=== PATIENT | male | born 1945 | race Caucasian/White ===

== ENCOUNTER → 2016-05-18 | Outpatient (CLI) | payer MEDICARE, OTHER ==
[~2016-05-18] MED LIST: ASPI-496 PO; CALC100O TP; CHOL100014 PO; CRAN300T PO; DAPA10TA PO; ESOM40CA PO; EXEN2VIA IM; EZET1TAB4 PO; FLAX1CAP PO; GLIP10TA13 PO; GLUC1TAB9 PO; HYDR25TA6 PO; LISI5TAB7 PO; MAGN300C PO; METF500T4 PO; MULT-658 PO
== END | disposition home or self-care (01) ==
LOC: CVU 11:23
PROVIDERS: ATTEND Family Medicine
DX: I08.0 Rheumatic disorders of both mitral and aortic valves (principal); I51.7 Cardiomegaly; E11.9 Type 2 diabetes mellitus without complications; J45.909 Unspecified asthma, uncomplicated; E78.5 Hyperlipidemia, unspecified; G47.30 Sleep apnea, unspecified; R60.0 Localized edema
CPT/HCPCS: 93306; 93922; 93970

== ENCOUNTER → 2016-06-08 | Outpatient (CLI) | payer MEDICARE, OTHER ==
[~2016-06-08] MED LIST changes: +OMNIPAQUE 350 MG/ML, 150 ML BOTTLE ONE
== END | disposition home or self-care (01) ==
LOC: CFH 10:31
PROVIDERS: ATTEND Internal Medicine Hematology & Oncology
DX: K44.9 Diaphragmatic hernia without obstruction or gangrene (principal); K43.9 Ventral hernia without obstruction or gangrene; R16.1 Splenomegaly, not elsewhere classified; N28.1 Cyst of kidney, acquired; K76.89 Other specified diseases of liver; N20.0 Calculus of kidney; R18.8 Other ascites; M51.37 Other intervertebral disc degeneration, lumbosacral region; D72.89 Other specified disorders of white blood cells
CPT/HCPCS: 71260; 74177; Q9967

== ENCOUNTER 2016-08-27 10:19 | Day surgery (SDC) | payer MEDICARE, OTHER ==
[~2016-08-27] VITALS: Ht 182.9 cm; Wt 161.8 kg
[~2016-08-27 10:19] MED LIST changes: -OMNIPAQUE 350 MG/ML, 150 ML BOTTLE ONE
[2016-08-27 11:16] VITALS: BP 132/76
[2016-08-27] MEDS ORDERED: SODIUM CHLORIDE 0.9% 1,000 ML IV SCH (11:18)
[2016-08-27] MEDS ORDERED: FENTANYL PF 100 MCG/2ML ONE (12:07)
[2016-08-27] MEDS ORDERED: FLUMAZENIL 0.1 MG/1 ML, 5ML ONE (12:07)
[2016-08-27] MEDS ORDERED: NALOXONE 1 MG/ML, 2ML ONE (12:07)
[2016-08-27] MEDS ORDERED: MIDAZOLAM 1 MG/ML, 5ML ONE (12:07)
== END 2016-08-27 14:40 | disposition home or self-care (01) ==
LOC: OUT 10:19
PROVIDERS: ATTEND Internal Medicine Hematology & Oncology
DX: D69.6 Thrombocytopenia, unspecified (principal); J45.909 Unspecified asthma, uncomplicated; I10 Essential (primary) hypertension; E11.9 Type 2 diabetes mellitus without complications; Z85.46 Personal history of malignant neoplasm of prostate; E78.5 Hyperlipidemia, unspecified; K21.9 Gastro-esophageal reflux disease without esophagitis; Z86.010 Personal history of colon polyps; Z87.442 Personal history of urinary calculi; Z98.890 Other specified postprocedural states
CPT/HCPCS: 36415; 49180; 77012; 85025; 85610; 88304; 88341; 88342; 99156; 99157; J2250; J3010; J7030; G0461; J2310

== ENCOUNTER → 2016-10-09 | Outpatient (CLI) | payer MEDICARE, OTHER ==
[2016-10-09 07:45] LABS: HEMATOCRIT 39.7 % (39.2-51.8); HEMOGLOBIN 13.3 g/dL (13.7-18.0); WHITE BLOOD COUNT 4.3 x10^3/uL (3.4-10)
[2016-10-09 07:46] LABS: DIFF TOTAL CELLS COUNTED 100 CELL DIFF
[2016-10-09 08:16] LABS: VERIFY COUNTS? YES
== END | disposition home or self-care (01) ==
LOC: RAD 07:25 → EDSTATUS 07:30
PROVIDERS: ATTEND Family Medicine
DX: D69.6 Thrombocytopenia, unspecified (principal); D72.89 Other specified disorders of white blood cells
CPT/HCPCS: 36415; 38221; 77012; 85025; 85097; 88237; 88264; 88280; 88305; 88311; 88313; G0364

== ENCOUNTER → 2016-10-11 | Outpatient (CLI) | payer MEDICARE, OTHER | END | disposition home or self-care (01) | LOC: CVU 07:07 | PROVIDERS: ATTEND Surgery Vascular Surgery | DX: I77.1 Stricture of artery (principal); I70.8 Atherosclerosis of other arteries; E11.9 Type 2 diabetes mellitus without complications; E78.5 Hyperlipidemia, unspecified; G47.33 Obstructive sleep apnea (adult) (pediatric); I10 Essential (primary) hypertension; Z98.890 Other specified postprocedural states | CPT/HCPCS: 93880 ==

== ENCOUNTER 2017-05-06 15:52 | Emergency (ER) | payer MEDICARE, OTHER ==
[~2017-05-06] VITALS: Ht 182.9 cm; Wt 162.0 kg
[~2017-05-06 15:52] MED LIST changes: +EZET1TAB30 PO; -EZET1TAB4 PO
[2017-05-06] MEDS ORDERED: ONDANSETRON ODT 4 MG ONE ×2 (16:09→18:02)
[2017-05-06] MEDS ORDERED: ONDANSETRON ODT 4 MG PO ONE (16:30)
[2017-05-06 16:35] LABS: ALBUMIN 3.6 g/dL (3.4-5.0); ANION GAP 7 mmol/L (5-15); CALCIUM 9.4 mg/dL (8.5-10.1); CHLORIDE 109 mmol/L (98-107); CREATININE 1.14 mg/dL (0.7-1.3)
[2017-05-06 16:55] LABS: BASOPHILS # (AUTO) 0.01 x10^3/uL (0-0.1); BASOPHILS % (AUTO) 0 % (0-1); EOSINOPHILS # (AUTO) 0.08 x10^3/uL (0-0.4); EOSINOPHILS % (AUTO) 2 % (1-7); LYMPHOCYTES # (AUTO) 0.44 x10^3/uL (1-3.4); LYMPHOCYTES % (AUTO) 9 % (22-44); MD SCAN; MEAN CORPUSCULAR HEMOGLOBIN 29.8 pg (27.5-34.5); MEAN CORPUSCULAR HGB CONC 33.6 g/dL (33.2-36.2); MEAN CORPUSCULAR VOLUME 88.7 fL (81-97); MEAN PLATELET VOLUME 9.1 fL (7.4-10.4); MONOCYTES # (AUTO) 0.35 x10^3/uL (0.2-0.8); MONOCYTES % (AUTO) 7 % (2-9); NEUTROPHILS # (AUTO) 4.22 x10^3/uL (1.8-6.8); NEUTROPHILS % (AUTO) 83 % (42-75); PLATELET COUNT 60 x10^3/uL (130-400); RED CELL DISTRIBUTION WIDTH 18.3 % (9.4-14.8)
[2017-05-06] MEDS ORDERED: SODIUM CHLORIDE FLUSH 10ML SYR IVF ONE (18:00)
[2017-05-06] MEDS ORDERED: MORPHINE SULFATE 4 MG/ML, 1ML ONE ×2 (18:02→19:06)
[2017-05-06] MEDS: MORPHINE SULFATE 4 MG/ML, 1ML IVPush PRN ×2 (18:09→19:09)
[2017-05-06 18:10] LABS: MICROSCOPIC AUTO
[2017-05-06 18:15] LABS: CULTURE INDICATED? NO
[2017-05-06 20:34] VITALS: BP 133/65
== END 2017-05-06 20:37 | disposition home or self-care (01) ==
LOC: ED 20:31
DX: N13.2 Hydronephrosis with renal and ureteral calculous obstruction (principal); E11.9 Type 2 diabetes mellitus without complications
CPT/HCPCS: 36415; 74176; 80048; 81001; 82040; 85025; 96374; 99285; Q0162

== ENCOUNTER → 2017-05-14 | Outpatient (CLI) | payer MEDICARE, OTHER ==
[~2017-05-14] MED LIST changes: +OMNIPAQUE 350 MG/ML, 75ML BOTTLE ONE
== END | disposition home or self-care (01) ==
LOC: CFH 09:12
PROVIDERS: ATTEND Internal Medicine Hematology & Oncology
DX: N20.1 Calculus of ureter (principal); K80.20 Calculus of gallbladder without cholecystitis without obstruction; R16.1 Splenomegaly, not elsewhere classified; K43.9 Ventral hernia without obstruction or gangrene; D72.89 Other specified disorders of white blood cells
CPT/HCPCS: 74177; Q9967

== ENCOUNTER → 2018-04-25 | Outpatient (CLI) | payer MEDICARE, OTHER ==
[~2018-04-25] MED LIST changes: +METF500T17 PO; -METF500T4 PO; -OMNIPAQUE 350 MG/ML, 75ML BOTTLE ONE
== END | disposition home or self-care (01) ==
LOC: CFH 07:21
PROVIDERS: ATTEND Internal Medicine
DX: K76.6 Portal hypertension (principal); K74.69 Other cirrhosis of liver; I85.10 Secondary esophageal varices without bleeding
CPT/HCPCS: 76700

== ENCOUNTER 2018-08-21 20:23 | Emergency (ER) | payer MEDICARE, OTHER ==
[~2018-08-21] VITALS: Ht 182.9 cm; Wt 157.8 kg
[2018-08-21] MEDS ORDERED: DIPH,PERTUSS(ACELL),TET VAC/PF 0.5 ML IM-VACC ONE ×2 (21:00→21:02)
[2018-08-21] MEDS ORDERED: LIDOCAINE 2%, 20ML SQ ONE (21:00)
[2018-08-21] MEDS ORDERED: LIDOCAINE-MPF 1%, 5ML ONE (21:01)
[2018-08-21] MEDS ORDERED: HYDROcodone/APAP 5/325 TABLET ONE (21:37)
--- NOTE | 2018-08-21 21:44 | NUR ---
PT MEDICATED FOR PAIN AND TETANUS SHOT GIVEN. PA AT BEDSIDE TO SUTURE
[2018-08-21 21:50] VITALS: BP 150/72
[2018-08-21] MEDS ORDERED: HYDROcodone/APAP 5/325 TABLET PO ONE (22:00)
[2018-08-21] MEDS ORDERED: BACITRACIN ZINC OINT 500U/GM, 0.9 GM ONE ×2 (22:03→22:15)
--- NOTE | 2018-08-21 22:20 | NUR ---
Patient given discharge instructions and they have confirmed that they understand the instructions. Patient ambulatory with steady gait.
== END 2018-08-21 22:25 | disposition home or self-care (01) ==
LOC: ED 21:47
DX: S01.01XA Laceration without foreign body of scalp, initial encounter (principal); S61.210A Laceration without foreign body of right index finger without damage to nail, initial encounter; S29.012A Strain of muscle and tendon of back wall of thorax, initial encounter; S00.83XA Contusion of other part of head, initial encounter; J45.909 Unspecified asthma, uncomplicated; E11.9 Type 2 diabetes mellitus without complications; W01.0XXA Fall on same level from slipping, tripping and stumbling without subsequent striking against object, initial encounter; Y93.89 Activity, other specified; Y92.89 Other specified places as the place of occurrence of the external cause; Y99.8 Other external cause status
CPT/HCPCS: 12001; 13131; 70450; 70486; 72072; 90471; 90715

== ENCOUNTER 2018-08-23 11:20 | Inpatient (IN) | payer MEDICARE, OTHER ==
[2018-08-23] VITALS (15 sets, daily range): BP systolic 92–141; BP diastolic 40–120
[~2018-08-23] VITALS: Ht 182.9 cm; Wt 164.1 kg
[~2018-08-23 11:20] MED LIST changes: +ETOMIDATE 20 MG/10 ML ONE; +PROPOFOL 10 MG/ML, 100ML IV ONE; +PROPOFOL 10 MG/ML, 20ML ONE; +ROCURONIUM 10MG/ML,5ML ONE; +SUCCINYLCHOLINE 20 MG/ML, 10ML ONE; +VECURONIUM 10 MG ONE
--- NOTE | 2018-08-23 11:22 | NUR ---
LATE ENTRY; PT BIB [facility] AFTER VOMITTING BRIGHT RED BLOOD AND HAVING DARK BURGUNDY STOOL. PT VERY PALE. PT PLACED IN TRAUMA 3. MD AT BEDSIDE. IV STARTED. PT WITH HX: FALLING 2 DAYS AGO AND WAS SEEN HERE. PT WITH HX OF ESOPHAGEAL BANDS 2 WEEKS AGO BY GI. PT A&OX4, VERY DROWSY. EKG DONE AND PRESENTED TO MD. ASSESSMENT COMPLETED. PT PLACED ON BP, CARDIAC AND CONT. PULSE OXIMETER.
[2018-08-23] MEDS ORDERED: PANTOPRAZOLE 80 MG in SODIUM CHLORIDE 0.9% 50 ML IVPB ONE (11:26)
[2018-08-23] MEDS ORDERED: PANTOPRAZOLE 80 MG in SODIUM CHLORIDE 0.9% 100 ML IV SCH (11:26)
[2018-08-23] MEDS ORDERED: SODIUM CHLORIDE 0.9% 1,000 ML IV ONE (11:26)
[2018-08-23] MEDS ORDERED: OCTREOTIDE 100MCG/ML, 1ML (0.1MG/ML) IV ONE (11:30)
[2018-08-23] MEDS ORDERED: PLEASE ENTER HEIGHT AND WEIGHT MC SCH (11:30)
[2018-08-23] MEDS ORDERED: SODIUM CHLORIDE FLUSH 10ML SYR IVF ONE (11:30)
[2018-08-23] MEDS ORDERED: ONDANSETRON 2MG/ML, 2ML ONE (11:40)
[2018-08-23] MEDS ORDERED: METOCLOPRAMIDE 5 MG/ML, 2ML ONE (11:40)
--- NOTE | 2018-08-23 11:40 | NUR ---
PT VOMITED 300CC OF FLANK BLOOD
--- NOTE | 2018-08-23 11:40 | NUR ---
LATE ENTRY: 1ST UNIT PRBCS [id number] STARTED AT 11:47 BY RAPID INFUSION AND ENDED AT 1155. 2ND UNIT PACKED RED BLOOD CELLS [id number] STARTED AT 11:55 AND ENDED AT 12:07 DOUBLE CHECKED WITH 2 RNS.
--- NOTE | 2018-08-23 11:47 | NUR ---
BLOOD INFUSING VIA LEVEL ONE. PT ALERT, IV INFUSING
[2018-08-23 11:53] LABS: BASOPHILS # (AUTO) 0.03 x10^3/uL (0-0.1); BASOPHILS % (AUTO) 0 % (0-1); EOSINOPHILS % (AUTO) 3 % (1-7); LYMPHOCYTES # (AUTO) 0.75 x10^3/uL (1-3.4); LYMPHOCYTES % (AUTO) 7 % (22-44); MD NO; MEAN CORPUSCULAR HGB CONC 33.1 g/dL (33.2-36.2); MEAN CORPUSCULAR VOLUME 96.8 fL (81-97); MEAN PLATELET VOLUME 9.8 fL (7.4-10.4); MONOCYTES # (AUTO) 0.59 x10^3/uL (0.2-0.8); MONOCYTES % (AUTO) 5 % (2-9); NEUTROPHILS # (AUTO) 9.54 x10^3/uL (1.8-6.8); NEUTROPHILS % (AUTO) 85 % (42-75); PLATELET COUNT 126 x10^3/uL (130-400)
--- NOTE | 2018-08-23 11:55 | NUR ---
1ST UNIT OF RBC INFUSED VIA LEVEL ONE, SECOND INFUSING
[2018-08-23] MEDS ORDERED: OCTREOTIDE 500 MCG in SODIUM CHLORIDE 0.9% 249 ML IV PRN (12:00)
[2018-08-23] MEDS ORDERED: ESOMEPRAZOLE SODIUM 80 MG in SODIUM CHLORIDE 0.9% 100 ML IV ONE (12:00)
[2018-08-23] MEDS ORDERED: METOCLOPRAMIDE 5 MG/ML, 2ML IVPush ONE (12:00)
[2018-08-23] MEDS ORDERED: CEFTRIAXONE PMX 1GM/50ML 50 ML IV ONE (12:00)
[2018-08-23 12:02] LABS: INTERNATIONAL NORMALIZED RATIO 1.34 (0.93-1.1); PROTHROMBIN TIME 13.9 Seconds (9.6-11.5)
[2018-08-23] MEDS ORDERED: KETAMINE 10 MG/ML, 20ML ONE (12:02)
--- NOTE | 2018-08-23 12:03 | NUR ---
VOMITED 300CC, OF BLOOD. PLATLETS STARTED+
[2018-08-23 12:07] LABS: ALBUMIN 2.4 g/dL (3.4-5.0); ANION GAP 8 mmol/L (5-15); CALCIUM 7.4 mg/dL (8.5-10.1); CHLORIDE 114 mmol/L (98-107)
--- NOTE | 2018-08-23 12:07 | NUR ---
SECOND RBC BAG INFUSED
--- NOTE | 2018-08-23 12:08 | NUR ---
DR. LOPES INSERTED RIGHT ABD CORDIS USING [employer]
[2018-08-23 12:10] LABS: ALANINE AMINOTRANSFERASE 33 U/L (12-78); ALKALINE PHOSPHATASE 73 U/L (45-117); BILIRUBIN,TOTAL 1.3 mg/dL (0.2-1.0); CREATININE 1.03 mg/dL (0.7-1.3); TOTAL PROTEIN 4.8 g/dL (6.4-8.2)
[2018-08-23] MEDS ORDERED: OCTREOTIDE 100MCG/ML, 1ML (0.1MG/ML) ONE (12:10)
[2018-08-23] MEDS ORDERED: CEFTRIAXONE PMX 1GM/50ML 50 ML ONE (12:19)
--- NOTE | 2018-08-23 12:23 | NUR ---
PLASMA, AND PLATLETS COMPLETED
[2018-08-23] MEDS ORDERED: ESOMEPRAZOLE SODIUM 80 MG in SODIUM CHLORIDE 0.9% 100 ML IVPush SCH (12:30)
--- NOTE | 2018-08-23 12:31 | NUR ---
BLOOD CULTURES DRAWN X 2 PRIOR TO ANTIBX ADMISTRATION
--- NOTE | 2018-08-23 12:34 | NUR ---
2ND PLASMA STARTED
[2018-08-23] MEDS ORDERED: FENTANYL PF 100 MCG/2ML ONE ×3 (12:49→14:56)
--- NOTE | 2018-08-23 12:57 | NUR ---
20 ETOMINATE IV BY MD, FOLLOWED 100MG SUCCINYLCHOLINE ADMISSED BY MD, INTUBATED WITH 8.0, 26CM AT LIP
[2018-08-23] MEDS: OCTREOTIDE 500 MCG in SODIUM CHLORIDE 0.9% 249 ML IV SCH ×2 (13:00→22:33)
[2018-08-23] MEDS ORDERED: POLYETHYLENE GLYCOL 17 GM PACKET PO PRN (13:00)
[2018-08-23] MEDS ORDERED: BISACODYL 10 MG SUPP PR PRN (13:00)
[2018-08-23] MEDS ORDERED: ONDANSETRON 2MG/ML, 2ML IVPush PRN (13:00)
[2018-08-23] MEDS ORDERED: MORPHINE SULFATE 4 MG/ML, 1ML IVPush PRN (13:00)
[2018-08-23] MEDS: ESOMEPRAZOLE SODIUM 80 MG in SODIUM CHLORIDE 0.9% 100 ML IV SCH ×2 (13:00→22:33)
[2018-08-23] MEDS ORDERED: LORazepam 2 MG/ML, 1ML IVPush PRN (13:00)
[2018-08-23] MEDS ORDERED: OXYcodone IR 5MG TABLET PO PRN (13:00)
--- NOTE | 2018-08-23 13:01 | NUR ---
50MG OF KETAMINE ADMISTERED
--- NOTE | 2018-08-23 13:15 | NUR ---
100 FENTANYL AND 10MG OF VECCURONIUM GIVEN.
--- NOTE | 2018-08-23 13:16 | NUR ---
ACKERMAN 18 CIT[place] INSERTED .
[2018-08-23 13:24] LABS: THYROID STIMULATING HORMONE 1.65 mIU/L (0.358-3.740)
--- NOTE | 2018-08-23 13:25 | NUR ---
RADIOLOGY AT BEDSIDE FOR CHEST X-RAY FOR TUBE PLACEMENT.
[2018-08-23] MEDS ORDERED: FENTANYL PF 100 MCG/2ML IVPush ONE ×2 (13:30→15:30)
[2018-08-23] MEDS ORDERED: SUCCINYLCHOLINE 20 MG/ML, 10ML IVPush ONE (13:30)
[2018-08-23] MEDS ORDERED: ETOMIDATE 20 MG/10 ML IVPush ONE (13:30)
[2018-08-23] MEDS ORDERED: KETAMINE 100 MG/ML, 5ML IV ONE (13:30)
--- NOTE | 2018-08-23 13:30 | NUR ---
100 PROPOFOL IV PUSH GIVEN BY . PT PREPPED FOR EGD WITH GI
[2018-08-23] MEDS ORDERED: PROPOFOL 10 MG/ML, 20ML ONE (13:59)
[2018-08-23] MEDS ORDERED: PROPOFOL 0 ML IV ONE (13:59)
[2018-08-23] MEDS ORDERED: TRANEXAMIC ACID 100 MG/ML, 10ML ONE (14:39)
--- NOTE | 2018-08-23 15:17 | NUR ---
GI EGD FINISHED. 2 MORE UNITS OF PACKED RED BLOOD CELLS INFUSING. PT WITH TOTAL OF 6 UNITS PACKED RED BLOOD CELLS INFUSING, 2 UNITS PLASMA, 1 UNIT PLATELET.
--- NOTE | 2018-08-23 15:19 | NUR ---
RIGHT HAND IV FELL OUT.
--- NOTE | 2018-08-23 15:20 | NUR ---
REPORT CALLED TO TREMAYNE DOTSON.
[2018-08-23] MEDS ORDERED: MAGNESIUM SULFATE 4 GM in SODIUM CHLORIDE 0.9% 100 ML IV ONE (15:30)
[2018-08-23] MEDS ORDERED: PROPOFOL 10 MG/ML, 20ML IVPush ONE (15:30)
[2018-08-23] MEDS ORDERED: PHYTONADIONE 10 MG in SODIUM CHLORIDE 0.9% 50 ML IV ONE (15:30)
[2018-08-23] MEDS ORDERED: TRANEXAMIC ACID 1,000 MG in SODIUM CHLORIDE 0.9% 100 ML IV ONE ×2 (15:30→17:00)
[2018-08-23] MEDS ORDERED: INSULIN LISPRO 100 UNITS/ML, PEN SQ-INSULIN SCH ×2 (16:00→21:00)
--- NOTE | 2018-08-23 16:09 | NUR ---
PT TRANSFERRED TO FLOOR REPORT GIVEN TO TREMAYNE DOTSON. PT TRANSFERRED WITH RN AND RESPIRATORY
[2018-08-23] MEDS ORDERED: FENTANYL PF 2,500 MCG in SODIUM CHLORIDE 0.9% 200 ML IV PRN (16:15)
[2018-08-23] MEDS: PROPOFOL 100 ML IV PRN ×3 (16:20→20:06)
[2018-08-23] MEDS ORDERED: DEXTROSE 50%, 50ML SYRINGE IVPush PRN (16:30)
[2018-08-23] MEDS ORDERED: GLUCAGON 1 MG IM PRN (16:30)
[2018-08-23] MEDS ORDERED: PHARMACY MAY ADJ FOR RENAL FX MC SCH (16:30)
[2018-08-23] MEDS ORDERED: LIDOCAINE-MPF 1%, 2ML ENDO PRN (16:30)
[2018-08-23] MEDS: ALBUTEROL/IPRATROPIUM 2.5MG/0.5MG, 3 ML INLINE SCH ×3 (16:30→22:00)
[2018-08-23] MEDS ORDERED: DEXTROSE 4 GM TAB.CHEW PO PRN (16:30)
[2018-08-23] MEDS ORDERED: NOREPINEPHRINE 1 MG/ML, 4ML ONE (16:30)
[2018-08-23] MEDS ORDERED: MIDAZOLAM 1 MG/ML, 2ML ONE (16:41)
[2018-08-23] MEDS ORDERED: VECURONIUM 10 MG ONE (16:48)
[2018-08-23] MEDS ORDERED: PROPOFOL 100 ML IV PRN (17:00)
[2018-08-23] MEDS ORDERED: NOREPINEPHRINE 4 MG in SODIUM CHLORIDE 0.9% 246 ML IV PRN (17:00)
[2018-08-23] MEDS ORDERED: NOVOSEVEN RT (FACTOR VIIA) RECOMB 1,000 MCG IVPush ONE (17:00)
[2018-08-23] MEDS: VECURONIUM 50 MG in SODIUM CHLORIDE 0.9% 250 ML IV PRN ×2 (17:03→22:31)
[2018-08-23] MEDS: FENTANYL PF 2,500 MCG in SODIUM CHLORIDE 0.9% 200 ML IV PRN (17:05)
[2018-08-23 17:10] LABS: INTERNATIONAL NORMALIZED RATIO 0.97 (0.93-1.1); PROTHROMBIN TIME 10.2 Seconds (9.6-11.5)
[2018-08-23 17:12] LABS: ANION GAP 8 mmol/L (5-15); CALCIUM 6.7 mg/dL (8.5-10.1); CHLORIDE 115 mmol/L (98-107); CREATININE 1.12 mg/dL (0.7-1.3); TRIGLYCERIDES 148 mg/dL (50-200)
[2018-08-23 17:17] LABS: MEAN CORPUSCULAR HEMOGLOBIN 31.2 pg (27.5-34.5); MEAN CORPUSCULAR HGB CONC 32.8 g/dL (33.2-36.2); MEAN CORPUSCULAR VOLUME 95.2 fL (81-97); PLATELET COUNT 175 x10^3/uL (130-400); RED BLOOD COUNT 3.49 x10^6/uL (4.38-5.82); RED CELL DISTRIBUTION WIDTH 16.7 % (9.4-14.8)
[2018-08-23 17:22] LABS: BASOPHILS # (AUTO) 0.02 x10^3/uL (0-0.1); BASOPHILS % (AUTO) 0 % (0-1); EOSINOPHILS % (AUTO) 1 % (1-7); LYMPHOCYTES # (AUTO) 0.87 x10^3/uL (1-3.4); LYMPHOCYTES % (AUTO) 4 % (22-44); MD SCAN; MONOCYTES # (AUTO) 1.31 x10^3/uL (0.2-0.8); MONOCYTES % (AUTO) 6 % (2-9); NEUTROPHILS # (AUTO) 18.39 x10^3/uL (1.8-6.8); NEUTROPHILS % (AUTO) 89 % (42-75)
[2018-08-23] MEDS ORDERED: FUROSEMIDE 20 MG/2 ML IV STA (17:59)
[2018-08-23] MEDS ORDERED: VASOPRESSIN 100 UNIT in SODIUM CHLORIDE 0.9% 495 ML IV PRN (18:00)
[2018-08-23] MEDS ORDERED: MIDAZOLAM 1 MG/ML, 2ML IVPush ONE (18:00)
[2018-08-23] MEDS ORDERED: CALCIUM CHLORIDE 13.6 MEQ in SODIUM CHLORIDE 0.9% 100 ML IV ONE (18:00)
[2018-08-23] MEDS ORDERED: VECURONIUM 10 MG IVPush ONE (18:00)
[2018-08-23] MEDS ORDERED: CODE BLUE RESPONSE XX ONE (18:00)
[2018-08-23] MEDS ORDERED: CALCIUM GLUCONATE 13.8 MEQ in SODIUM CHLORIDE 0.9% 100 ML IV ONE (18:00)
[2018-08-23 19:00] LABS: MEAN CORPUSCULAR HEMOGLOBIN 31.6 pg (27.5-34.5); MEAN CORPUSCULAR HGB CONC 33.7 g/dL (33.2-36.2); MEAN CORPUSCULAR VOLUME 93.7 fL (81-97); MEAN PLATELET VOLUME 8.7 fL (7.4-10.4); PLATELET COUNT 172 x10^3/uL (130-400); RED BLOOD COUNT 4.14 x10^6/uL (4.38-5.82); RED CELL DISTRIBUTION WIDTH 16.2 % (9.4-14.8)
[2018-08-23 19:17] LABS: D-DIMER (DIC) 4.31 ug/mlFEU (0.00-0.52); PROTIME 10.6 Seconds (9.6-11.5)
[2018-08-23 19:20] LABS: MD YES
[2018-08-23 19:22] LABS: BAND#(MANUAL) 1.48 x10^3/uL; BANDS%(MANUAL) 6 % (0-7); LYMPH#(MANUAL) 0.49 x10^3/uL (1-3.4); LYMPHS% (MANUAL) 2 % (22-44); MONOS#(MANUAL) 1.97 x10^3/uL (0.3-2.7); MONOS% (MANUAL) 8 % (2-9); SEG#(MANUAL) 20.66 x10^3/uL (1.8-6.8); SEGS% (MANUAL) 84 % (42-75)
[2018-08-23 19:23] LABS: ANISOCYTOSIS 1+
[2018-08-23 19:24] LABS: POLYCHROMASIA 1+
[2018-08-23 19:25] LABS: <PLATELET ESTIMATE> ADEQUATE; <PLT MORPHOLOGY> NORMAL PLT MORPH; ECHINOCYTES 1+
[2018-08-23] MEDS ORDERED: LACTULOSE 10 GM/15 ML UDC PO SCH (21:00)
[2018-08-23] MEDS: SODIUM CHLORIDE FLUSH 10ML SYR IVF SCH (21:15)
[2018-08-23] MEDS: INSULIN LISPRO 100 UNITS/ML, PEN SQ-INSULIN SCH (21:20)
[2018-08-23] MEDS ORDERED: NOREPINEPHRINE 8 MG in SODIUM CHLORIDE 0.9% 242 ML IV PRN (22:00)
[2018-08-23 22:36] LABS: MEAN CORPUSCULAR HEMOGLOBIN 31.1 pg (27.5-34.5); MEAN CORPUSCULAR HGB CONC 33.1 g/dL (33.2-36.2); MEAN CORPUSCULAR VOLUME 93.9 fL (81-97); MEAN PLATELET VOLUME 8.6 fL (7.4-10.4); PLATELET COUNT 159 x10^3/uL (130-400); RED BLOOD COUNT 4.18 x10^6/uL (4.38-5.82); RED CELL DISTRIBUTION WIDTH 16.4 % (9.4-14.8)
[2018-08-23 22:51] LABS: MD YES; TROPONIN I 0.263 ng/mL (0.000-0.045)
[2018-08-23 22:52] LABS: BAND#(MANUAL) 1.46 x10^3/uL; BANDS%(MANUAL) 6 % (0-7); LYMPH#(MANUAL) 0.49 x10^3/uL (1-3.4); LYMPHS% (MANUAL) 2 % (22-44); MONOS% (MANUAL) 9 % (2-9); SEG#(MANUAL) 20.25 x10^3/uL (1.8-6.8); SEGS% (MANUAL) 83 % (42-75)
[2018-08-23 22:53] LABS: ANISOCYTOSIS 1+; ECHINOCYTES 1+; TEAR DROPS 1+
[2018-08-23 22:54] LABS: OVALOCYTES 1+; POLYCHROMASIA 1+
[2018-08-23 22:55] LABS: <PLATELET ESTIMATE> ADEQUATE; <PLT MORPHOLOGY> NORMAL PLT MORPH
[2018-08-24] MEDS: PROPOFOL 100 ML IV PRN ×6 (00:04→20:03)
[2018-08-24 02:13] LABS: MEAN CORPUSCULAR HEMOGLOBIN 31.5 pg (27.5-34.5); MEAN CORPUSCULAR VOLUME 92.8 fL (81-97); MEAN PLATELET VOLUME 8.5 fL (7.4-10.4); PLATELET COUNT 146 x10^3/uL (130-400); RED CELL DISTRIBUTION WIDTH 16.2 % (9.4-14.8)
[2018-08-24 02:19] LABS: MD YES
[2018-08-24] MEDS: ALBUTEROL/IPRATROPIUM 2.5MG/0.5MG, 3 ML INLINE SCH ×6 (02:22→22:15)
[2018-08-24 02:23] LABS: INTERNATIONAL NORMALIZED RATIO 1.15 (0.93-1.1)
[2018-08-24 02:25] LABS: ANISOCYTOSIS 1+; BAND#(MANUAL) 0.61 x10^3/uL; BANDS%(MANUAL) 3 % (0-7); LYMPH#(MANUAL) 1.01 x10^3/uL (1-3.4); LYMPHS% (MANUAL) 5 % (22-44); MONOS#(MANUAL) 1.01 x10^3/uL (0.3-2.7); MONOS% (MANUAL) 5 % (2-9); POLYCHROMASIA 1+; SEG#(MANUAL) 17.57 x10^3/uL (1.8-6.8); SEGS% (MANUAL) 87 % (42-75)
[2018-08-24 02:26] LABS: <PLATELET ESTIMATE> DECREASED; <PLT MORPHOLOGY> NORMAL PLT MORPH; ALANINE AMINOTRANSFERASE 32 U/L (12-78); ALBUMIN 2.5 g/dL (3.4-5.0); ANION GAP 6 mmol/L (5-15); CALCIUM 7.3 mg/dL (8.5-10.1); CHLORIDE 115 mmol/L (98-107); CREATININE 1.05 mg/dL (0.7-1.3); OVALOCYTES 1+; TEAR DROPS 1+
[2018-08-24 02:28] LABS: ALKALINE PHOSPHATASE 75 U/L (45-117); BILIRUBIN,TOTAL 1.4 mg/dL (0.2-1.0)
[2018-08-24 02:33] LABS: TROPONIN I 0.202 ng/mL (0.000-0.045)
[2018-08-24] MEDS: INSULIN LISPRO 100 UNITS/ML, PEN SQ-INSULIN SCH ×4 (02:33→22:50)
[2018-08-24] MEDS: MIDAZOLAM HCL 50 MG in SODIUM CHLORIDE 0.9% 240 ML IV PRN ×2 (03:28→12:12)
[2018-08-24] MEDS ORDERED: MIDAZOLAM 1 MG/ML, 2ML IVPush PRN (03:30)
[2018-08-24] MEDS: VECURONIUM 50 MG in SODIUM CHLORIDE 0.9% 250 ML IV PRN ×4 (04:25→23:32)
[2018-08-24 04:56] VITALS: BP 112/53
[2018-08-24] MEDS: OCTREOTIDE 500 MCG in SODIUM CHLORIDE 0.9% 249 ML IV SCH ×2 (07:36→18:20)
[2018-08-24] MEDS: ESOMEPRAZOLE SODIUM 80 MG in SODIUM CHLORIDE 0.9% 100 ML IV SCH ×2 (07:36→18:20)
[2018-08-24 07:37] LABS: MEAN CORPUSCULAR HEMOGLOBIN 30.3 pg (27.5-34.5); MEAN CORPUSCULAR VOLUME 91.9 fL (81-97); MEAN PLATELET VOLUME 8.4 fL (7.4-10.4); PLATELET COUNT 128 x10^3/uL (130-400); RED BLOOD COUNT 3.77 x10^6/uL (4.38-5.82); RED CELL DISTRIBUTION WIDTH 16.7 % (9.4-14.8)
[2018-08-24] MEDS: SODIUM CHLORIDE FLUSH 10ML SYR IVF SCH ×2 (07:37→20:09)
[2018-08-24] MEDS: PHYTONADIONE 10 MG/ML, 1ML SQ SCH (07:45)
[2018-08-24 09:01] LABS: BASOPHILS # (AUTO) 0.04 x10^3/uL (0-0.1); BASOPHILS % (AUTO) 0 % (0-1); EOSINOPHILS % (AUTO) 1 % (1-7); LYMPHOCYTES # (AUTO) 1.34 x10^3/uL (1-3.4); LYMPHOCYTES % (AUTO) 9 % (22-44); MD NO; MONOCYTES # (AUTO) 1.36 x10^3/uL (0.2-0.8); MONOCYTES % (AUTO) 9 % (2-9); NEUTROPHILS # (AUTO) 12.08 x10^3/uL (1.8-6.8); NEUTROPHILS % (AUTO) 81 % (42-75)
[2018-08-24 10:32] LABS: MEAN CORPUSCULAR HEMOGLOBIN 30.2 pg (27.5-34.5); MEAN CORPUSCULAR HGB CONC 33.2 g/dL (33.2-36.2); MEAN CORPUSCULAR VOLUME 90.9 fL (81-97); MEAN PLATELET VOLUME 8.1 fL (7.4-10.4); PLATELET COUNT 85 x10^3/uL (130-400); RED BLOOD COUNT 3.76 x10^6/uL (4.38-5.82); RED CELL DISTRIBUTION WIDTH 16.9 % (9.4-14.8)
[2018-08-24 10:57] LABS: BASOPHILS # (AUTO) 0.02 x10^3/uL (0-0.1); BASOPHILS % (AUTO) 0 % (0-1); EOSINOPHILS # (AUTO) 0.14 x10^3/uL (0-0.4); EOSINOPHILS % (AUTO) 1 % (1-7); LYMPHOCYTES # (AUTO) 1.01 x10^3/uL (1-3.4); LYMPHOCYTES % (AUTO) 9 % (22-44); MD SCAN; MONOCYTES # (AUTO) 1.08 x10^3/uL (0.2-0.8); MONOCYTES % (AUTO) 9 % (2-9); NEUTROPHILS # (AUTO) 9.42 x10^3/uL (1.8-6.8); NEUTROPHILS % (AUTO) 81 % (42-75)
[2018-08-24] MEDS: CEFTRIAXONE PMX 1GM/50ML 50 ML IV SCH (11:01)
[2018-08-24] MEDS: FENTANYL PF 2,500 MCG in SODIUM CHLORIDE 0.9% 200 ML IV PRN (14:31)
[2018-08-24 14:39] LABS: MEAN CORPUSCULAR HEMOGLOBIN 30.2 pg (27.5-34.5); MEAN CORPUSCULAR HGB CONC 33.3 g/dL (33.2-36.2); MEAN CORPUSCULAR VOLUME 90.6 fL (81-97); MEAN PLATELET VOLUME 7.9 fL (7.4-10.4); PLATELET COUNT 59 x10^3/uL (130-400); RED BLOOD COUNT 3.47 x10^6/uL (4.38-5.82); RED CELL DISTRIBUTION WIDTH 16.5 % (9.4-14.8)
[2018-08-24 14:45] LABS: BASOPHILS # (AUTO) 0.02 x10^3/uL (0-0.1); BASOPHILS % (AUTO) 0 % (0-1); EOSINOPHILS # (AUTO) 0.05 x10^3/uL (0-0.4); EOSINOPHILS % (AUTO) 1 % (1-7); LYMPHOCYTES # (AUTO) 0.53 x10^3/uL (1-3.4); LYMPHOCYTES % (AUTO) 6 % (22-44); MD SCAN; MONOCYTES # (AUTO) 0.58 x10^3/uL (0.2-0.8); MONOCYTES % (AUTO) 7 % (2-9); NEUTROPHILS # (AUTO) 7.35 x10^3/uL (1.8-6.8); NEUTROPHILS % (AUTO) 86 % (42-75)
[2018-08-24] MEDS: METRONIDAZOLE PMX 500MG/100ML 100 ML IV SCH ×2 (15:18→22:47)
[2018-08-24 19:16] LABS: MEAN CORPUSCULAR HEMOGLOBIN 31.1 pg (27.5-34.5); MEAN CORPUSCULAR HGB CONC 33.8 g/dL (33.2-36.2); MEAN PLATELET VOLUME 8.4 fL (7.4-10.4); PLATELET COUNT 57 x10^3/uL (130-400); RED BLOOD COUNT 3.14 x10^6/uL (4.38-5.82); RED CELL DISTRIBUTION WIDTH 16.8 % (9.4-14.8)
[2018-08-24 19:18] LABS: BASOPHILS # (AUTO) 0.01 x10^3/uL (0-0.1); BASOPHILS % (AUTO) 0 % (0-1); EOSINOPHILS # (AUTO) 0.05 x10^3/uL (0-0.4); EOSINOPHILS % (AUTO) 1 % (1-7); LYMPHOCYTES # (AUTO) 0.68 x10^3/uL (1-3.4); LYMPHOCYTES % (AUTO) 10 % (22-44); MD SCAN; MONOCYTES # (AUTO) 0.62 x10^3/uL (0.2-0.8); MONOCYTES % (AUTO) 9 % (2-9); NEUTROPHILS # (AUTO) 5.41 x10^3/uL (1.8-6.8); NEUTROPHILS % (AUTO) 80 % (42-75)
[2018-08-24 22:14] LABS: MEAN CORPUSCULAR HEMOGLOBIN 31.3 pg (27.5-34.5); MEAN CORPUSCULAR HGB CONC 33.8 g/dL (33.2-36.2); MEAN CORPUSCULAR VOLUME 92.5 fL (81-97); MEAN PLATELET VOLUME 8.1 fL (7.4-10.4); PLATELET COUNT 54 x10^3/uL (130-400); RED BLOOD COUNT 3.19 x10^6/uL (4.38-5.82); RED CELL DISTRIBUTION WIDTH 17.1 % (9.4-14.8)
[2018-08-24 22:33] LABS: BASOPHILS # (AUTO) 0.07 x10^3/uL (0-0.1); BASOPHILS % (AUTO) 1 % (0-1); EOSINOPHILS # (AUTO) 0.08 x10^3/uL (0-0.4); EOSINOPHILS % (AUTO) 1 % (1-7); LYMPHOCYTES # (AUTO) 0.68 x10^3/uL (1-3.4); LYMPHOCYTES % (AUTO) 9 % (22-44); MD SCAN; MONOCYTES # (AUTO) 0.66 x10^3/uL (0.2-0.8); MONOCYTES % (AUTO) 9 % (2-9); NEUTROPHILS # (AUTO) 6.05 x10^3/uL (1.8-6.8); NEUTROPHILS % (AUTO) 80 % (42-75)
[2018-08-25] VITALS (7 sets, daily range): BP systolic 115–145; BP diastolic 63–93
[2018-08-25] MEDS: ALBUTEROL/IPRATROPIUM 2.5MG/0.5MG, 3 ML INLINE SCH ×7 (02:10→22:30)
[2018-08-25] MEDS: MIDAZOLAM HCL 50 MG in SODIUM CHLORIDE 0.9% 240 ML IV PRN ×3 (03:53→23:49)
[2018-08-25] MEDS: INSULIN LISPRO 100 UNITS/ML, PEN SQ-INSULIN SCH ×4 (04:10→22:21)
[2018-08-25 04:28] LABS: MEAN CORPUSCULAR VOLUME 93.8 fL (81-97); MEAN PLATELET VOLUME 8.6 fL (7.4-10.4); PLATELET COUNT 54 x10^3/uL (130-400); RED BLOOD COUNT 3.05 x10^6/uL (4.38-5.82); RED CELL DISTRIBUTION WIDTH 17.4 % (9.4-14.8)
[2018-08-25 04:49] LABS: D-DIMER (DIC) 5.57 ug/mlFEU (0.00-0.52); PROTIME 13.4 Seconds (9.6-11.5)
[2018-08-25] MEDS: OCTREOTIDE 500 MCG in SODIUM CHLORIDE 0.9% 249 ML IV SCH ×2 (04:52→14:46)
[2018-08-25] MEDS: ESOMEPRAZOLE SODIUM 80 MG in SODIUM CHLORIDE 0.9% 100 ML IV SCH ×2 (04:52→15:49)
[2018-08-25 05:40] LABS: BASOPHILS # (AUTO) 0.03 x10^3/uL (0-0.1); BASOPHILS % (AUTO) 0 % (0-1); EOSINOPHILS # (AUTO) 0.09 x10^3/uL (0-0.4); EOSINOPHILS % (AUTO) 1 % (1-7); LYMPHOCYTES # (AUTO) 0.69 x10^3/uL (1-3.4); LYMPHOCYTES % (AUTO) 10 % (22-44); MD SCAN; MONOCYTES # (AUTO) 0.73 x10^3/uL (0.2-0.8); MONOCYTES % (AUTO) 10 % (2-9); NEUTROPHILS # (AUTO) 5.65 x10^3/uL (1.8-6.8); NEUTROPHILS % (AUTO) 79 % (42-75)
[2018-08-25] MEDS: VECURONIUM 50 MG in SODIUM CHLORIDE 0.9% 250 ML IV PRN (05:41)
[2018-08-25] MEDS: METRONIDAZOLE PMX 500MG/100ML 100 ML IV SCH ×3 (06:31→22:13)
[2018-08-25 09:59] LABS: ANION GAP 6 mmol/L (5-15); CALCIUM 7.4 mg/dL (8.5-10.1); CHLORIDE 115 mmol/L (98-107); CREATININE 0.94 mg/dL (0.7-1.3)
[2018-08-25 10:03] LABS: MEAN CORPUSCULAR HEMOGLOBIN 31.9 pg (27.5-34.5); MEAN CORPUSCULAR HGB CONC 34.1 g/dL (33.2-36.2); MEAN CORPUSCULAR VOLUME 93.6 fL (81-97); MEAN PLATELET VOLUME 8.4 fL (7.4-10.4); RED BLOOD COUNT 2.92 x10^6/uL (4.38-5.82); RED CELL DISTRIBUTION WIDTH 17.4 % (9.4-14.8)
[2018-08-25 10:05] LABS: PLATELET COUNT 47 x10^3/uL (130-400)
[2018-08-25 10:15] LABS: BASOPHILS # (AUTO) 0.01 x10^3/uL (0-0.1); BASOPHILS % (AUTO) 0 % (0-1); EOSINOPHILS # (AUTO) 0.07 x10^3/uL (0-0.4); EOSINOPHILS % (AUTO) 1 % (1-7); LYMPHOCYTES # (AUTO) 0.49 x10^3/uL (1-3.4); LYMPHOCYTES % (AUTO) 9 % (22-44); MD SCAN; MONOCYTES # (AUTO) 0.48 x10^3/uL (0.2-0.8); MONOCYTES % (AUTO) 9 % (2-9); NEUTROPHILS # (AUTO) 4.49 x10^3/uL (1.8-6.8); NEUTROPHILS % (AUTO) 81 % (42-75)
[2018-08-25] MEDS: PHYTONADIONE 10 MG/ML, 1ML SQ SCH (10:34)
[2018-08-25] MEDS: SODIUM CHLORIDE FLUSH 10ML SYR IVF SCH ×2 (10:38→21:47)
[2018-08-25] MEDS: FENTANYL PF 2,500 MCG in SODIUM CHLORIDE 0.9% 200 ML IV PRN (12:07)
[2018-08-25] MEDS: CEFTRIAXONE PMX 1GM/50ML 50 ML IV SCH (12:09)
[2018-08-25 13:19] LABS: MEAN CORPUSCULAR HEMOGLOBIN 31.8 pg (27.5-34.5); MEAN CORPUSCULAR HGB CONC 34.3 g/dL (33.2-36.2); MEAN CORPUSCULAR VOLUME 92.7 fL (81-97); RED BLOOD COUNT 2.88 x10^6/uL (4.38-5.82); RED CELL DISTRIBUTION WIDTH 16.7 % (9.4-14.8)
[2018-08-25 13:23] LABS: MEAN PLATELET VOLUME 7.8 fL (7.4-10.4); PLATELET COUNT 57 x10^3/uL (130-400)
[2018-08-25 13:26] LABS: BASOPHILS # (AUTO) 0.01 x10^3/uL (0-0.1); BASOPHILS % (AUTO) 0 % (0-1); EOSINOPHILS # (AUTO) 0.07 x10^3/uL (0-0.4); EOSINOPHILS % (AUTO) 1 % (1-7); LYMPHOCYTES # (AUTO) 0.43 x10^3/uL (1-3.4); LYMPHOCYTES % (AUTO) 8 % (22-44); MD SCAN; MONOCYTES # (AUTO) 0.46 x10^3/uL (0.2-0.8); MONOCYTES % (AUTO) 8 % (2-9); NEUTROPHILS # (AUTO) 4.54 x10^3/uL (1.8-6.8); NEUTROPHILS % (AUTO) 82 % (42-75)
[2018-08-25] MEDS ORDERED: LIDOCAINE-MPF 1%, 5ML ONE (15:52)
[2018-08-25] MEDS: ALBUMIN HUMAN 25% 100 ML IV SCH ×2 (17:50→22:55)
[2018-08-25 18:47] LABS: BASOPHILS # (AUTO) 0.02 x10^3/uL (0-0.1); BASOPHILS % (AUTO) 0 % (0-1); EOSINOPHILS # (AUTO) 0.08 x10^3/uL (0-0.4); EOSINOPHILS % (AUTO) 2 % (1-7); LYMPHOCYTES % (AUTO) 9 % (22-44); MD SCAN; MEAN CORPUSCULAR HEMOGLOBIN 31.4 pg (27.5-34.5); MEAN CORPUSCULAR HGB CONC 33.5 g/dL (33.2-36.2); MEAN CORPUSCULAR VOLUME 93.8 fL (81-97); MEAN PLATELET VOLUME 8.4 fL (7.4-10.4); MONOCYTES % (AUTO) 9 % (2-9); NEUTROPHILS # (AUTO) 3.49 x10^3/uL (1.8-6.8); NEUTROPHILS % (AUTO) 80 % (42-75); PLATELET COUNT 57 x10^3/uL (130-400); RED BLOOD COUNT 2.53 x10^6/uL (4.38-5.82); RED CELL DISTRIBUTION WIDTH 17.2 % (9.4-14.8)
[2018-08-25 22:26] LABS: MEAN CORPUSCULAR HEMOGLOBIN 31.6 pg (27.5-34.5); MEAN CORPUSCULAR HGB CONC 33.8 g/dL (33.2-36.2); MEAN CORPUSCULAR VOLUME 93.4 fL (81-97); MEAN PLATELET VOLUME 8.2 fL (7.4-10.4); PLATELET COUNT 52 x10^3/uL (130-400); RED BLOOD COUNT 2.54 x10^6/uL (4.38-5.82)
[2018-08-25 22:46] LABS: BASOPHILS # (AUTO) 0.02 x10^3/uL (0-0.1); BASOPHILS % (AUTO) 1 % (0-1); EOSINOPHILS # (AUTO) 0.09 x10^3/uL (0-0.4); EOSINOPHILS % (AUTO) 2 % (1-7); LYMPHOCYTES # (AUTO) 0.37 x10^3/uL (1-3.4); LYMPHOCYTES % (AUTO) 10 % (22-44); MD SCAN; MONOCYTES # (AUTO) 0.33 x10^3/uL (0.2-0.8); MONOCYTES % (AUTO) 8 % (2-9); NEUTROPHILS # (AUTO) 3.05 x10^3/uL (1.8-6.8); NEUTROPHILS % (AUTO) 79 % (42-75)
[2018-08-26] MEDS: OCTREOTIDE 500 MCG in SODIUM CHLORIDE 0.9% 249 ML IV SCH ×2 (00:32→11:47)
[2018-08-26 01:18] LABS: MEAN CORPUSCULAR HEMOGLOBIN 30.8 pg (27.5-34.5); MEAN CORPUSCULAR HGB CONC 33.4 g/dL (33.2-36.2); MEAN CORPUSCULAR VOLUME 92.2 fL (81-97); MEAN PLATELET VOLUME 8.2 fL (7.4-10.4); PLATELET COUNT 52 x10^3/uL (130-400); RED BLOOD COUNT 2.47 x10^6/uL (4.38-5.82); RED CELL DISTRIBUTION WIDTH 16.9 % (9.4-14.8)
[2018-08-26] MEDS: ESOMEPRAZOLE SODIUM 80 MG in SODIUM CHLORIDE 0.9% 100 ML IV SCH (01:19)
[2018-08-26 01:20] LABS: MD YES
[2018-08-26 01:23] LABS: EOS#(MANUAL) 0.03 x10^3/uL (0.0-0.4); EOS% (MANUAL) 1 % (1-7); LYMPH#(MANUAL) 0.31 x10^3/uL (1-3.4); LYMPHS% (MANUAL) 10 % (22-44); MONOS#(MANUAL) 0.22 x10^3/uL (0.3-2.7); MONOS% (MANUAL) 7 % (2-9); SEG#(MANUAL) 2.54 x10^3/uL (1.8-6.8); SEGS% (MANUAL) 82 % (42-75)
[2018-08-26 01:24] LABS: ANISOCYTOSIS 1+; POLYCHROMASIA 1+
[2018-08-26 01:25] LABS: <PLATELET ESTIMATE> DECREASED; <PLT MORPHOLOGY> NORMAL PLT MORPH
[2018-08-26] MEDS: ALBUTEROL/IPRATROPIUM 2.5MG/0.5MG, 3 ML INLINE SCH ×3 (02:15→10:10)
[2018-08-26 04:17] VITALS: BP 124/68
[2018-08-26] MEDS: INSULIN LISPRO 100 UNITS/ML, PEN SQ-INSULIN SCH ×2 (04:31→10:20)
[2018-08-26 04:44] LABS: MEAN CORPUSCULAR HEMOGLOBIN 30.8 pg (27.5-34.5); MEAN CORPUSCULAR HGB CONC 33.2 g/dL (33.2-36.2); MEAN CORPUSCULAR VOLUME 92.8 fL (81-97); MEAN PLATELET VOLUME 8.4 fL (7.4-10.4); PLATELET COUNT 58 x10^3/uL (130-400); RED BLOOD COUNT 2.27 x10^6/uL (4.38-5.82); RED CELL DISTRIBUTION WIDTH 17.4 % (9.4-14.8)
[2018-08-26 04:51] LABS: ANION GAP 2 mmol/L (5-15); CALCIUM 7.6 mg/dL (8.5-10.1); CHLORIDE 117 mmol/L (98-107)
[2018-08-26 04:52] LABS: CREATININE 0.85 mg/dL (0.7-1.3); TRIGLYCERIDES 139 mg/dL (50-200)
[2018-08-26 05:47] LABS: BASOPHILS % (AUTO) 0 % (0-1); EOSINOPHILS # (AUTO) 0.08 x10^3/uL (0-0.4); EOSINOPHILS % (AUTO) 3 % (1-7); LYMPHOCYTES % (AUTO) 10 % (22-44); MD SCAN; MONOCYTES # (AUTO) 0.28 x10^3/uL (0.2-0.8); MONOCYTES % (AUTO) 9 % (2-9); NEUTROPHILS # (AUTO) 2.47 x10^3/uL (1.8-6.8); NEUTROPHILS % (AUTO) 79 % (42-75)
[2018-08-26] MEDS: METRONIDAZOLE PMX 500MG/100ML 100 ML IV SCH ×2 (06:03→14:48)
[2018-08-26] MEDS: PHYTONADIONE 10 MG/ML, 1ML SQ SCH (08:43)
[2018-08-26] MEDS: SODIUM CHLORIDE FLUSH 10ML SYR IVF SCH (08:44)
[2018-08-26] MEDS: ALBUMIN HUMAN 25% 100 ML IV SCH ×2 (08:44→15:30)
[2018-08-26] MEDS ORDERED: PANTOPRAZOLE 80 MG in SODIUM CHLORIDE 0.9% 100 ML IV SCH (11:00)
[2018-08-26] MEDS: CEFTRIAXONE PMX 1GM/50ML 50 ML IV SCH (11:47)
[2018-08-26] MEDS ORDERED: LORazepam 2 MG/ML, 1ML IV ONE (16:00)
[2018-08-26] MEDS ORDERED: ATROPINE OPHTH SOLN 1%, 2ML PO PRN (16:00)
[2018-08-26] MEDS ORDERED: morphine SULFATE 10 MG/ML, 1ML IV ONE (16:00)
[2018-08-26] MEDS: MORPHINE 30MG/30ML PCA.SYR IV PRN (18:00)
[2018-08-26] MEDS: LORazepam 2 MG/ML, 1ML IV PRN ×4 (20:07→23:59)
[2018-08-26] MEDS: ATROPINE OPHTH SOLN 1%, 5ML PO PRN (20:31)
[2018-08-27] MEDS: MORPHINE 30MG/30ML PCA.SYR IV PRN ×2 (01:01→06:35)
[2018-08-27] MEDS: ATROPINE OPHTH SOLN 1%, 5ML PO PRN ×4 (06:12→12:08)
[2018-08-27] MEDS: LORazepam 2 MG/ML, 1ML IV PRN ×4 (06:13→09:42)
[2018-08-27] MEDS ORDERED: morphine SULFATE 125 MG in SODIUM CHLORIDE 0.9% 237.5 ML IV PRN (10:30)
[2018-08-27] MEDS ORDERED: LORazepam 2 MG/ML, 1ML IVPush PRN (10:30)
[2018-08-27] MEDS: LORazepam 2 MG/ML, 1ML IVPush SCH ×4 (12:33→18:30)
== END 2018-08-27 18:53 | disposition expired | DRG 432 ==
LOC: ED 12:32 → EDIP 12:37 → ED 14:11 → CCU 16:00 → 3NW 08-27 07:51
PROVIDERS: ADMIT Internal Medicine; ATTEND Internal Medicine
PROC: 5A1945Z Respiratory Ventilation, 24-96 Consecutive Hours (ICD-10-PCS; 2018-08-23)
PROC: 3E0G8GC Introduction of Other Therapeutic Substance into Upper GI, Via Natural or Artificial Opening Endoscopic (ICD-10-PCS; 2018-08-23)
PROC: 30233K1 Transfusion of Nonautologous Frozen Plasma into Peripheral Vein, Percutaneous Approach (ICD-10-PCS; 2018-08-23)
PROC: 30233N1 Transfusion of Nonautologous Red Blood Cells into Peripheral Vein, Percutaneous Approach (ICD-10-PCS; 2018-08-23)
PROC: 30233R1 Transfusion of Nonautologous Platelets into Peripheral Vein, Percutaneous Approach (ICD-10-PCS; 2018-08-23)
PROC: 30233M1 Transfusion of Nonautologous Plasma Cryoprecipitate into Peripheral Vein, Percutaneous Approach (ICD-10-PCS; 2018-08-23)
PROC: B54BZZA Ultrasonography of Right Lower Extremity Veins, Guidance (ICD-10-PCS; 2018-08-23)
PROC: 0DC68ZZ Extirpation of Matter from Stomach, Via Natural or Artificial Opening Endoscopic (ICD-10-PCS; 2018-08-23)
PROC: 06HY33Z Insertion of Infusion Device into Lower Vein, Percutaneous Approach (ICD-10-PCS; principal; 2018-08-23 12:30)
PROC: 02HV33Z Insertion of Infusion Device into Superior Vena Cava, Percutaneous Approach (ICD-10-PCS; 2018-08-25)
PROC: B5181ZA Fluoroscopy of Superior Vena Cava using Low Osmolar Contrast, Guidance (ICD-10-PCS; 2018-08-25)
PROC: B548ZZA Ultrasonography of Superior Vena Cava, Guidance (ICD-10-PCS; 2018-08-25)
PROC: 0BH17EZ Insertion of Endotracheal Airway into Trachea, Via Natural or Artificial Opening (ICD-10-PCS; 2018-08-25)
PROC: B51T1ZZ Fluoroscopy of Portal and Splanchnic Veins using Low Osmolar Contrast (ICD-10-PCS; 2018-08-25)
PROC: B2141ZZ Fluoroscopy of Right Heart using Low Osmolar Contrast (ICD-10-PCS; 2018-08-25)
DX: K74.69 Other cirrhosis of liver (principal); J96.00 Acute respiratory failure, unspecified whether with hypoxia or hypercapnia; I85.11 Secondary esophageal varices with bleeding; J69.0 Pneumonitis due to inhalation of food and vomit; D65 Disseminated intravascular coagulation [defibrination syndrome]; E43 Unspecified severe protein-calorie malnutrition; K22.11 Ulcer of esophagus with bleeding; D62 Acute posthemorrhagic anemia; D68.59 Other primary thrombophilia; K76.6 Portal hypertension; N20.2 Calculus of kidney with calculus of ureter; E87.2 Acidosis; Z68.42 Body mass index [BMI] 45.0-49.9, adult; Z99.11 Dependence on respirator [ventilator] status; R57.1 Hypovolemic shock; D72.828 Other elevated white blood cell count; E11.9 Type 2 diabetes mellitus without complications; E55.9 Vitamin D deficiency, unspecified; E66.9 Obesity, unspecified; E78.5 Hyperlipidemia, unspecified; G47.33 Obstructive sleep apnea (adult) (pediatric); I11.9 Hypertensive heart disease without heart failure; J45.909 Unspecified asthma, uncomplicated; J98.4 Other disorders of lung; K21.9 Gastro-esophageal reflux disease without esophagitis; K75.81 Nonalcoholic steatohepatitis (NASH); K44.9 Diaphragmatic hernia without obstruction or gangrene; K43.9 Ventral hernia without obstruction or gangrene; K80.20 Calculus of gallbladder without cholecystitis without obstruction; L40.9 Psoriasis, unspecified; N28.1 Cyst of kidney, acquired; R56.9 Unspecified convulsions; R57.8 Other shock; Z51.5 Encounter for palliative care; Z82.3 Family history of stroke; Z83.3 Family history of diabetes mellitus; Z86.010 Personal history of colon polyps; Z86.73 Personal history of transient ischemic attack (TIA), and cerebral infarction without residual deficits; Z87.442 Personal history of urinary calculi
CPT/HCPCS: 31500; 36415; 36556; 36573; 36600; 37182; 71045; 80048; 80053; 82140; 82803; 82962; 83605; 83690; 83735; 84100; 84443; 84478; 84484; 85025; 85049; 85379; 85384; 85610; 85730; 86850; 86900; 86923; 87040; 87070; 87081; 87205; 93005; 94002; 94003; 94640; 96361; 96365; 96366; 96368; 96375; 99152; 99292; C8929; G0378; J0610; J0696; J2250; J2270; J2354; J2704; J3010; J3430; J3475; J7189; J7620; P9047; Q9957; A4648; C1751; C9113; J0330; J1815; J1940; J2060; J2765; J7030; J7040; J7050; P9012; P9016; P9017; P9035